=== PATIENT | female | born 2005 | race Caucasian/White ===

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

== ENCOUNTER 2025-10-02 18:28 | Emergency (ER) | payer OTHER | END 2025-10-02 19:11 | disposition left against medical advice (07) | LOC: ED 18:28 | DX: Z53.21 Procedure and treatment not carried out due to patient leaving prior to being seen by health care provider (principal) ==

== ENCOUNTER 2025-10-03 08:09 | Emergency (ER) | payer OTHER ==
[2025-10-03 08:28] VITALS: PULSE 87; TEMP 99.3; O2SAT 97
--- NOTE | 2025-10-03 08:49 | ERPHSYRPT ---
- History of Present Illness Time Seen by Provider: 10/03/25 08:26 Source: patient Exam Limitations: no limitations Patient Subjective Stated Complaint: pt is bleeding during since 09/29/2025--11-12weeks Triage Nursing Assessment: Pt brought to the ER by marybel daly, rates pain as 10/10, pulses normal, skin pale/w/d, reports chest pain when her abdominal pain is at its worse, pt also states that it triggers her asthma, pt states that she is heavily bleeding and has clots, bleeding has gotten worse since the , a pt of Dr. Haley Allergies/Adverse Reactions: iodine Allergy (Verified 10/03/25 08:29) Hives Home Medications: No Reportable Medications [No Reported Medications] 10/03/25 [History] Hx Tetanus, Diphtheria Vaccination/Date Given: No Hx Influenza Vaccination/Date Given: No Hx Pneumococcal Vaccination/Date Given: No Travel Risk - International Travel Have you traveled outside of the country in past 3 weeks: No - Emerging Infectious Disease Are you exhibiting symptoms associated with any current EIDs: No - Review of Systems Constitutional: No Symptoms Eyes: No Symptoms Ears, Nose, & Throat: No Symptoms Respiratory: No Symptoms Cardiac: No Symptoms Abdominal/Gastrointestinal: Other (lower abdominal cramping ) Genitourinary Symptoms: Vaginal Bleeding Musculoskeletal: No Symptoms - Past Medical History Pertinent Past Medical History: No Neurological History: No Pertinent History ENT History: No Pertinent History Cardiac History: No Pertinent History Respiratory History: No Pertinent History Endocrine Medical History: No Pertinent History Musculoskeletal History: No Pertinent History GI Medical History: No Pertinent History History: No Pertinent History Psycho-Social History: No Pertinent History Female Reproductive Disorders: No Pertinent History - Past Surgical History Past Surgical History: No - Female History Hx Now: Yes Gestational Age: 8weeks - Social History Smoking Status: Current every day smoker How long have you smoked: vapes Exposure to second hand smoke: No Drug Use: marijuana - Social Determinants of Health Will the patient participate in the screening: Yes Do you worry about a steady place to live?: No Do you have any problems with any of the following?: No known problems In the past 12 months,have you had to go without utilities?: No Transportation Issues: No Has anyone in your support network made you feel unsafe?: No Have you or anyone in your house had to go w/o enough food: No - Nursing Vital Signs Nursing Vital Signs: Initial Vital Signs Temperature 99.3 F 10/03/25 08:17 Pulse Rate 87 10/03/25 08:17 Blood Pressure 126/77 10/03/25 08:17 O2 Sat by Pulse Oximetry 97 10/03/25 08:17 Pain Scale Pain Intensity 10 - Physical Exam General Appearance: no apparent distress Eye Exam: PERRL/EOMI Ears, Nose, Throat Exam: normal ENT inspection Neck Exam: normal inspection Respiratory Exam: normal breath sounds Cardiovascular Exam: regular rate/rhythm Gastrointestinal/Abdomen Exam: soft, normal bowel sounds Pelvic Exam: deferred Rectal Exam: not done SpO2: 97 Ordered Tests: Active Orders 24 hr Category Date Time Status OB FOLLOW UP PER [facility] [US] Stat Exams 10/03/25 08:42 Taken CBC Stat Lab 10/03/25 08:55 Completed CMP Stat Lab 10/03/25 08:55 Completed HCG, Quantitative (Inhouse) Stat Lab 10/03/25 08:55 Completed Lab/Rad Data: Laboratory Result Diagrams 10/03/25 08:55 10/03/25 08:55 Laboratory Results 10/03/25 10/03/25 10/03/25 Range/Units 08:55 08:55 08:55 WBC 10.5 H (3.98-10.04) x10^3/uL RBC 3.86 L (3.93-5.22) x10^6/uL Hgb 11.6 (11.2-15.7) g/dL Hct 35.3 (34.1-44.9) % MCV 91.5 (79.4-94.8) fL MCH 30.1 (25.6-32.2) pg MCHC 32.9 (32.2-35.5) g/dL RDW 12.8 (11.7-14.4) % Plt Count 203 (182-369) x10^3/uL MPV 11.4 (9.4-12.3) fL Sodium 137 (135-145) mmol/L Potassium 3.9 (3.5-5.1) mmol/L Chloride 106 (98-107) mmol/L Carbon Dioxide 21 L (22-30) mmol/L Anion Gap 14.2 (5-15) MEQ/L BUN 8 (7-17) mg/dL Creatinine 0.49 L (0.52-1.04) mg/dL Estimated GFR 137.4 ML/MIN Glucose 93 (74-106) mg/dL Calcium 8.9 (8.4-10.2) mg/dL Total Bilirubin 0.40 (0.2-1.3) mg/dL AST 21 (14-36) U/L ALT 10 (0-35) U/L Alkaline Phosphatase 66 (38-126) U/L Serum Total Protein 7.5 (6.3-8.2) g/dL Albumin 4.4 (3.5-5.0) g/dL Beta HCG, Quant 341.72 mIU/ml ABO Group B Rh Factor POSITIVE Antibody Screen NEGATIVE (NEGATIVE) - Progress Progress Note: . Patient was seen initially labs were ordered ultrasound was ordered she was informed of the need for pelvic exam but deferred. She was updated with the results of the pelvic ultrasound. She did pass a large clot with spongy tissue here in the department. Patient was seen in the department by Dr. haley who will see her on an outpatient basis. She feels comfortable going home at this time 10/03/25 10:17 Medical Desision Making - Discussion of managment Care discussed with:: specialist Agreed on:: need for follow-up Will see patient: In office - Departure Departure Disposition: Home Clinical Impression: Complete Condition: Stable Critical Care Time: No Referrals: GRUPO STEARNS DO [Primary Care Provider, [facility]] - Follow up/PCP as directed
[2025-10-03 09:04] LABS: Hematocrit 35.3 % (34.1-44.9); Hemoglobin 11.6 g/dL (11.2-15.7); Mean Corpuscular Hemoglobin 30.1 pg (25.6-32.2); Mean Corpuscular Hgb Concent. 32.9 g/dL (32.2-35.5); Platelet Count 203 x10^3/uL (182-369); Red Blood Count 3.86 x10^6/uL (3.93-5.22); White Blood Count 10.5 x10^3/uL (3.98-10.04)
[2025-10-03 09:11] VITALS: BP 112/77
[2025-10-03 09:41] LABS: Calcium 8.9 mg/dL (8.4-10.2); Carbon Dioxide 21.0 mmol/L (22-30); Creatinine 1 0.49 mg/dL (0.52-1.04); EST GLOMERULAR FILTRATION RATE 137.4 ML/MIN; Glucose 93.0 mg/dL (74-106); Potassium 3.9 mmol/L (3.5-5.1); SGOT/AST 21.0 U/L (14-36); SGPT/ALT 10.0 U/L (0-35); Total Protein 7.5 g/dL (6.3-8.2)
[2025-10-03 10:12] LABS: ABO TYPING B; RH TYPING POSITIVE
--- NOTE | 2025-10-03 15:18 | XRAY ---
Indication: Threatened . Two-dimensional transvaginal early OB ultrasound performed. Comparison: September 09, 2025 Uterus again anteverted. No intrauterine gestational sac, pole, or heart tones. Previous intrauterine gestational sac not seen presumed passed/aborted. No endometrial cavity mass or fluid collection. Comment: Preliminary report was given.
== END 2025-10-03 10:23 | disposition home or self-care (01) ==
LOC: ED 08:09
DX: O03.9 Complete or unspecified spontaneous abortion without complication (principal); Z72.0 Tobacco use